=== PATIENT | female | born 1955 | race Caucasian/White ===

== ENCOUNTER 2018-03-07 20:27 | Inpatient (IN) | payer OTHER, MEDICARE ==
[~2018-03-07] VITALS: Ht 165.1 cm; Wt 63.5 kg
[~2018-03-07 20:27] MED LIST: GLIMEPIRIDE2 MG PO; METFORMIN HCL500 MG PO
[2018-03-07] MEDS ORDERED: KETOROLAC TROMETHAMINE 60 MG/2 ML VIAL IM ONE (20:45)
[2018-03-07] MEDS ORDERED: ORPHENADRINE CITRATE 30 MG/ML VIAL IM ONE (20:45)
[2018-03-07] MEDS ORDERED: TRAMADOL HCL 50 MG TAB PO ONE (20:45)
--- NOTE | 2018-03-07 20:57 | Discharge Summary ---
NO DICTATION. 0 seconds. Job#: [id number]
--- NOTE | 2018-03-07 21:38 | Diagnostic Imaging Report ---
LUMBAR 3 VIEW HISTORY: Lumbar pain COMPARISON: None FINDINGS: Bones: Compression deformity of L1 vertebral body of indeterminate age with decreased vertebral height of about 50% with evidence of a lower vertebral body retropulsion into the spinal canal of approximately 9 mm. Joints: Diffuse facet hypertrophy of the lower lumbar spine. Soft tissues: The soft tissues appear unremarkable. IMPRESSION: 1. Compression deformity of L1 as described above, indeterminate age with evidence of body retropulsion Signed by: Dr. Paulo Proctor M.D. on 03/07/2018 9:35 PM
--- NOTE | 2018-03-07 22:41 | Diagnostic Imaging Report ---
History: Low back pain Comparison studies: None Technique: Axial images were obtained from T11-T12 through the sacrum. Coronal and sagittal images reconstructed from the axial data. Intravenous contrast: None Findings: Number of non-rib bearing vertebral bodies: 5 Alignment: Normal lordosis. No scoliosis. Soft tissues: Incidental scattered calcified plaques in the abdominal aorta. Paraspinal muscles: Unremarkable. Vertebrae: The bones are moderately demineralized. An age indeterminate burst compression fracture at L1, which involves both endplates and the posterior wall, results in 60% height loss. A 6 mm retropulsed fragment from the inferior endplate results in moderate spinal canal stenosis. Cannot adequately evaluate the conus on this noncontrast lumbar spine CT. No infection or neoplasm Degenerative changes: The disks are relatively normal in height from L1 through S1. Moderate bilateral facet arthrosis at L4-5 (worse on the left) and at L5-S1 (worse on the right) does not result in spinal canal or significant foraminal stenosis. Sacroiliac joints: Bilaterally degenerated. IMPRESSION: 1. Bones are moderately demineralized. 2. An age indeterminate burst compression fracture at L1 (AO Spine classification A4) is associated with a retropulsed fragment that results in moderate underlying spinal canal stenosis. 3. No additional fractures. 4. Moderate degenerative changes of the facets at L4-5 and at L5-S1. 5. No additional lumbar abnormalities. Signed by: Dr. Polo Chapa M.D. on 03/07/2018 10:38 PM
[2018-03-07 23:22] LABS: BASOPHILS # (AUTO) 0.1 (0.0-0.1); BASOPHILS % 0.4 % (0.0-1.0); HEMATOCRIT 43.4 % (34.2-44.1); HEMOGLOBIN 14.8 g/dL (12.0-16.0); LYMPHOCYTES # (AUTO) 1.4 (1.0-3.2); LYMPHOCYTES % 6.8 % (18.0-39.1); MEAN CORPUSCULAR HEMOGLOBIN 31.4 pg (28-32); MEAN CORPUSCULAR HGB CONC 34.1 g/dL (31-35); MEAN CORPUSCULAR VOLUME 92.1 fL (81-99); MONOCYTES % 4.7 % (4.4-11.3); NEUTROPHILS # (AUTO) 17.9 (2.1-6.9); PLATELET COUNT 328 x10e3/uL (140-360); RED BLOOD COUNT 4.71 x10e6/uL (3.6-5.1); RED CELL DISTRIBUTION WIDTH 11.7 % (11.7-14.4)
[2018-03-07 23:29] LABS: INR 0.98; PARTIAL THROMBOPLASTIN TIME 22.8 seconds (23.8-35.5); PROTHROMBIN TIME 12.2 seconds (11.9-14.5)
[2018-03-07 23:38] LABS: ALBUMIN/GLOBULIN RATIO 1.1 (0.8-2.0); ANION GAP 17.5 mmol/L (8-16); CALCIUM 10.2 mg/dL (8.4-10.2); CREATININE, SERUM 0.94 mg/dL (0.57-1.11); POTASSIUM 4.5 mmol/L (3.5-5.1)
[2018-03-07] MEDS ORDERED: INSULIN REGULAR, HUMAN 100 UNIT/1 ML 3ML VIAL SQ ONE (23:45)
--- NOTE | 2018-03-07 23:52 | Diagnostic Imaging Report ---
EXAMINATION: CHEST SINGLE (PORTABLE) INDICATION: Presurgical assessment COMPARISON: None FINDINGS: TUBES and LINES: None. LUNGS: Lungs are well inflated. Lungs are clear. There is no evidence of pneumonia or pulmonary edema. PLEURA: No pleural effusion or pneumothorax. HEART AND MEDIASTINUM: The cardiomediastinal silhouette is unremarkable. BONES AND SOFT TISSUES: No acute osseous lesion. Soft tissues are unremarkable. UPPER ABDOMEN: No free air under the diaphragm. IMPRESSION: No acute thoracic abnormality. Signed by: Dr. Paulo Proctor M.D. on 03/07/2018 11:48 PM
[2018-03-08] VITALS (9 sets, daily range): BP systolic 148–177; BP diastolic 81–99
[2018-03-08 00:04] LABS: CLARITY,URINE CLEAR (CLEAR); COLOR,URINE YELLOW (YELLOW)
[2018-03-08 00:05] LABS: BILIRUBIN,URINE NEGATIVE (NEGATIVE); KETONES,URINE 3+ (NEGATIVE); LEUKOCYTE ESTERASE ,URINE NEGATIVE (NEGATIVE); NITRITE,URINE NEGATIVE (NEGATIVE); PROTEIN,URINE DIPSTICK NEGATIVE (NEGATIVE); URINE UROBILINOGEN 0.2 mg/dL (0.2 - 1)
[2018-03-08 00:11] LABS: EPITHELIAL CELLS,URINE RARE /LPF; RBC,URINE 0-5 /HPF (0-5); WBC,URINE (MAN) 0-5 /HPF (0-5)
[2018-03-08] MEDS ORDERED: DEXTROSE 50% SYRINGE 50 ML IV PRN ×2 (00:15→12:30)
[2018-03-08] MEDS ORDERED: ONDANSETRON HCL INJ 2 MG/ML VIAL IV PRN (00:15)
[2018-03-08] MEDS ORDERED: PIPER-TAZ 3.375 GM 50 ML IV STA (00:23)
[2018-03-08] MEDS ORDERED: ACETAMINOPHEN 325 MG TAB PO PRN (00:30)
--- OUTSIDE RECORDS SUMMARY | 2018-03-08 00:38 | XMS REPORT ---
Author Author [facility] Address Unknown Phone Unavailable Care Team Providers Care Raspberry Checker Name Role Phone DMITRY DANIELS Unavailable Unavailable Problems This patient has no known problems. Allergies, Adverse Reactions, Alerts This patient has no known allergies or adverse reactions. Medications This patient has no known medications. Results Test Description Test Time Test Comments Text Results Atomic Results Result Comments CHEST SINGLE (PORTABLE) [place] [address] Patient Name: NELI LOPEZ MR #: [id number] : 1955 Age/Sex: 63/F Req #: [id number] Adm Physician: Ordered by: DMITRY DANIELS MD Report #: [id number] Location: ER Room/Bed: ___ Procedure: [id number] DX/CHEST SINGLE (PORTABLE) Exam Date: 03/07/18 Exam Time: 2330 REPORT STATUS: Signed EXAMINATION: CHEST SINGLE (PORTABLE) INDICATION: Presurgical assessment COMPARISON: None FINDINGS: TUBES and LINES: None. LUNGS: Lungs are well inflated. Lungs are clear. There is no evidence of pneumonia or pulmonary edema. PLEURA: No pleural effusion or pneumothorax. HEART AND MEDIASTINUM: The cardiomediastinal silhouette is unremarkable. BONES AND SOFT TISSUES: No acute osseous lesion. Soft tissues are unremarkable. UPPER ABDOMEN: No free air under the diaphragm. IMPRESSION: No acute thoracic abnormality. Signed by: Dr. Paulo Proctor M.D. on 03/07/2018 11:48 PM Dictated By: PAULO VELEZ MD 47 COPY TO: DMITRY DANIELS MD CT LUMBAR SPINE WO [place] [address] Patient Name: NELI LOPEZ MR #: [id number] : 1955 Age/Sex: 63/F Req # : [id number] Adm Physician: Ordered by: DMITRY DANIELS MD Report # : [id number] Location: ER Room/Bed: Procedure: [id number] CT/CT LUMBAR SPINE WO Exam Date: 03/07/18 Exam Time: 2147 REPORT STATUS: Signed History: Low back pain Comparison studies: None Technique: Axial images were obtained from T11- T12 through the sacrum. Coronal and sagittal images reconstructed from the axial data. Intravenous contrast: None Findings: Number of non-rib bearing vertebral bodies: 5 Alignment: Normal lordosis. No scoliosis. Soft tissues: Incidental scattered calcified plaques in the abdominal aorta. Paraspinal muscles: Unremarkable. Vertebrae: The bones are moderately demineralized. An age indeterminate burst compression fracture at L1, which involves both endplates and the posterior wall, results in 60% height loss. A 6 mm retropulsed fragment from the inferior endplate results in moderate spinal canal stenosis. Cannot adequately evaluate the conus on this noncontrast lumbar spine CT. No infection or neoplasm Degenerative changes: The disks are relatively normal in height from L1 through S1. Moderate bilateral facet arthrosis at L4-5 (worse on the left) and at L5-S1 ( worse on the right) does not result in spinal canal or significant foraminal stenosis. Sacroiliac joints: Bilaterally degenerated. IMPRESSION: 1. Bones are moderately demineralized. 2. An age indeterminate burst compression fracture at L1 (AO Spine classification A4) is associated with a retropulsed fragment that results in moderate underlying spinal canal stenosis. 3. No additional fractures. 4. Moderate degenerative changes of the facets at L4-5 and at L5-S1. 5. No additional lumbar abnormalities. Signed by: Dr. Polo Chapa M.D. on 03/07/2018 10:38 PM Dictated By: POLO CHAPA MD, MD 37 Transcribed By: HERNANDEZ on 03/07/182237 COPY TO: DMITRY DANIELS MD LUMBAR 3 VIEW [place] [address] Patient Name: NELI LOPEZ MR #: [id number] : 1955 Age/Sex: 63/F Req #: [id number] Adm Physician: Ordered by: DMITRY DANIELS MD Report #: [id number] Location: ER Room/Bed: Procedure: [id number] DX/LUMBAR 3 VIEW Exam Date: 03/07/18 Exam Time : 2034 REPORT STATUS: Signed LUMBAR 3 VIEW HISTORY: Lumbar pain COMPARISON: None FINDINGS: Bones: Compression deformity of L1 vertebral body of indeterminate age with decreased vertebral height of about 50% with evidence of a lower vertebral body retropulsion into the spinal canal of approximately 9 mm. Joints: Diffuse facet hypertrophy of the lower lumbar spine. Soft tissues: The soft tissues appear unremarkable. IMPRESSION: 1. Compression deformity of L1 as described above, indeterminate age with evidence of body retropulsion Signed by: Dr. Paulo Proctor M.D. on 03/07/2018 9:35 PM Dictated By: PAULO VELEZ MD 34 COPY TO: DMITRY DANIELS MD
[2018-03-08] MEDS: VANCOMYCIN 1GM/NS 250 ML 250 ML IV SCH ×2 (01:12→12:26)
[2018-03-08] MEDS: SODIUM CHLORIDE 0.9% 1000ML 1,000 ML IV SCH ×3 (02:51→16:04)
[2018-03-08] MEDS: PIPER-TAZ 3.375 GM 50 ML IV SCH ×3 (06:00→22:31)
[2018-03-08] MEDS: INSULIN REGULAR, HUMAN 100 UNIT/1 ML 3ML VIAL SQ SCH ×4 (07:30→22:30)
[2018-03-08] MEDS ORDERED: LABETALOL HCL 5 MG/ML 20ML VIAL IV PRN (12:45)
--- NOTE | 2018-03-08 12:57 | Diagnostic Imaging Report ---
Examination: MRI of the Lumbar Spine without Contrast History: Back pain, known L1 compression fracture Comparison studies: CT Lumbar spine on 03/07/2018 Technique: Sagittal T1, T2 and IR, axial T2 with and without fat sat and axial spin density oblique Intravenous contrast: None Findings: Number of lumbar vertebral bodies: 5. Soft tissues: No T2 hyperintense inflammatory changes . T2 hyperintense lesions within the bilateral kidneys, most probably represent cysts. Paraspinal muscles: STIR hyperintensity within the right psoas muscles at L1. Lower thoracic cord: Normal in size and signal. The tip of the conus is at L1-L2. Spinal canal narrowing due to compression fracture involving the conus medullaris. Cauda equina:No masses. No arachnoiditis . Vertebrae: Pathologic compression fracture of L1, with 55% loss of height centrally and 0.7 cm of retropulsion, causing moderate canal stenosis and juxtaposition of the cauda equina nerve roots. Diffuse T1 hypointensity within the T12 vertebral body with a superior endplate compression deformity T1 hypointensity and increased STIR signal within the inferior L3 vertebral body. Smaller T1 hypointense lesions in the L2 and L4 vertebral bodies. Degenerative changes: L1-L2 No abnormalities. L2-L3: Tiny central disc protrusion. No foraminal or canal stenosis. L3-L4: Small bilateral facet joint effusions. L4-L5: Small bilateral facet joint effusions. L5-S1: No abnormalities. Partially visualized sacrum: None. IMPRESSION: 1. Pathologic L1 compression fracture with retropulsion causing moderate spinal canal stenosis and juxtaposition of the cauda equina nerve roots and conus. No intrinsic conus signal abnormality. 2. Probable L3 vertebral body acute fracture due to edema along the inferior vertebral body without height loss. 3. Findings suggestive of malignancy, with marrow signal changes involving multiple vertebral bodies, most prominently the T12 vertebral body. Postcontrast lumbar spine images may be obtained for further evaluation. 4. T12 superior endplate compression deformity, without significant height loss. 5. Nonspecific STIR hyperintensity within the right psoas muscle at the L1 level, which may represent edema from recent injury. The preliminary report was completed by the neuroradiology fellow Dr. Margarito Modi. Findings discussed with SUKHJINDER Alan at 1255pm 03/07/18. Additional finding at L3 discussed Registered Nurse Hanna on 03/08/2018 at 1532 hours. The images and preliminary report were reviewed and signed by Dr. Delmi Lawrence, neuroradiology faculty, on 03/08/2018 at 1533 hours. Signed by: Dr. Delmi Lawrence M.D. on 03/08/2018 3:35 PM
[2018-03-08] MEDS: MORPHINE SULFATE 2 MG/ML SYR IV PRN (18:00)
[2018-03-08] MEDS ORDERED: GADOBENATE DIMEGLUMINE 1 ML IV ONE (18:35)
[2018-03-08] MEDS: INSULIN DETEMIR 100 UNIT/ML PEN SQ SCH (21:00)
[2018-03-09] VITALS (7 sets, daily range): BP systolic 151–166; BP diastolic 79–87
[2018-03-09] MEDS: SODIUM CHLORIDE 0.9% 1000ML 1,000 ML IV SCH ×3 (00:04→17:45)
[2018-03-09] MEDS: MORPHINE SULFATE 2 MG/ML SYR IV PRN (01:45)
[2018-03-09] MEDS: PIPER-TAZ 3.375 GM 50 ML IV SCH ×3 (05:10→20:58)
[2018-03-09] MEDS: INSULIN REGULAR, HUMAN 100 UNIT/1 ML 3ML VIAL SQ SCH ×4 (07:30→21:00)
[2018-03-09 07:32] LABS: BASOPHILS # (AUTO) 0.1 (0.0-0.1); BASOPHILS % 0.5 % (0.0-1.0); EOSINOPHILS # (AUTO) 0.3 (0.0-0.4); EOSINOPHILS % 2.6 % (0.0-6.0); HEMATOCRIT 40.3 % (34.2-44.1); HEMOGLOBIN 13.4 g/dL (12.0-16.0); LYMPHOCYTES # (AUTO) 2.1 (1.0-3.2); LYMPHOCYTES % 22.2 % (18.0-39.1); MEAN CORPUSCULAR HEMOGLOBIN 31.2 pg (28-32); MEAN CORPUSCULAR HGB CONC 33.3 g/dL (31-35); MEAN CORPUSCULAR VOLUME 93.9 fL (81-99); MONOCYTES # (AUTO) 0.8 (0.2-0.8); MONOCYTES % 8.1 % (4.4-11.3); NEUTROPHILS # (AUTO) 6.2 (2.1-6.9); NEUTROPHILS % 66.2 % (38.7-80.0); PLATELET COUNT 274 x10e3/uL (140-360); RED BLOOD COUNT 4.29 x10e6/uL (3.6-5.1); RED CELL DISTRIBUTION WIDTH 11.9 % (11.7-14.4)
[2018-03-09 08:17] LABS: ALANINE AMINOTRANSFERASE 10 IU/L (0-55); ALBUMIN 3.2 g/dL (3.5-5.0); ALKALINE PHOSPHATASE 69 IU/L (40-150); ANION GAP 13.7 mmol/L (8-16); BLOOD UREA NITROGEN 10 mg/dL (7-26); BUN/CREATININE RATIO 18 (6-25); CALCIUM 8.7 mg/dL (8.4-10.2); CARBON DIOXIDE 19 mmol/L (22-29); CHLORIDE 107 mmol/L (98-107); CREATININE, SERUM 0.57 mg/dL (0.57-1.11); EST GLOMERULAR FILTRATION RATE > 60 ML/MIN (60-); GLUCOSE 188 mg/dL (74-118); POTASSIUM 3.7 mmol/L (3.5-5.1); SODIUM 136 mmol/L (136-145)
[2018-03-09] MEDS ORDERED: SODIUM CHLORIDE 0.9% 50ML 50 ML ONE (10:08)
[2018-03-09] MEDS ORDERED: IOPAMIDOL 370 MG/ML 200 ML INFUS..BTL INJ ONE (10:09)
--- NOTE | 2018-03-09 11:35 | Diagnostic Imaging Report ---
Images made available for interpretation on 03/09/2018 at 10:30 AM. EXAMINATION: MRI of the lumbar spine with contrast HISTORY: Worsening back pain since the day before, history of compression fracture of L1 COMPARISON: Noncontrast lumbar spine MRI of 03/08/[address] on 03/07/2018 TECHNIQUE: Sagittal and axial T2. Sagittal and axial T1 postcontrast fat sat. Intravenous contrast: 14 mL of MultiHance FINDINGS: It is assumed that there are 5 lumbar vertebrae. Vertebrae: -Unchanged acute compression fracture of the L1 vertebral body with decreased vertebral body height by approximately 60% and posterior retropulsion by approximately 6 mm, with associated moderate canal stenoses and minimal abutment of the ventral conus medullaris, no abnormal signal within the conus at this time. Diffuse bone marrow edema, with enhancing edema mostly along the lateral and posterior margins of the vertebral body. No posttraumatic ligamentous injury is seen at this time in the anterior or posterior compartment. -Acute mild compression fracture of the L3 vertebral body with depression of the inferior endplate and decreased vertebral body height by approximately 10%, no retropulsion or canal stenoses, mildly prominent enhancing bone marrow edema adjacent to the inferior endplate is noted. -Unchanged nonspecific diffuse low T1 and T2 signal intensity of the T12 vertebral body with minimal likely chronic depression of the superior endplate, no posterior retropulsion and no canal stenosis. There is no involvement of the pedicle/posterior elements. A follow-up bone scan is recommended once acute above mentioned fractures resolved-or treated, to further characterize. -Previously mentioned tiny T1 hypointense lesion adjacent to the inferior endplate of L4 is nonenhancing, questionable minimal enhancement seen in the tiny lesion at L2. Curvature/Alignment: Normal lordosis. Conus: Normal, terminating at L1-L2. Cauda equina: No abnormalities of the cauda equina nerve roots, particularly no abnormal meningeal enhancement. Nonspecific minimal linear enhancement of the dorsal spinal canal dura extending from partially visualized lower thoracic down to L5, which may be related to combined vascular structures, reactive to recent trauma or less likely due to inflammatory or neoplastic process. Lower thoracic: Unremarkable. Paraspinal soft tissues: Unchanged probable cyst in the kidneys. Persistent nonenhancing edema in the right. Multiple extending from L1 to L3. Degenerative changes: L4-L5: Moderate bilateral facet arthrosis with minimal degenerative synovitis worst on the left without significant foraminal stenoses. L5-S1: Bilateral facet arthroses with minimal degenerative synovitis worse on the right without foraminal stenosis. Sacroiliac joints: Mild degenerative changes bilaterally. IMPRESSION: 1. Unchanged acute most likely osteoporotic burst fracture (A4) of the L1 vertebral body with posterior retropulsion and moderate canal stenoses, however there is no significant compression of the conus medullaris at this time. Follow-up until resolution is recommended to exclude underlying pathology, if the patient is consider candidate for percutaneous vertebral/kyphoplasty or surgery a biopsy may be obtained at that time. 2. Also unchanged mild acute compression fracture of the inferior endplate of L3 without retropulsion or canal stenosis. 3. Stable nonspecific hypointense appearance of the T12 vertebral body as described. Signed by: Dr. Zita James M.D. on 03/09/2018 11:32 AM
--- NOTE | 2018-03-09 11:53 | Diagnostic Imaging Report ---
CT chest, abdomen and pelvis with intravenous contrast Indication: L1 burst fracture, evaluate for malignancy Technique: Thin collimation axial images obtained from the thoracic inlet to the level of the pubic symphysis following the uneventful administration of 100 cc of low osmolar, nonionic intravenous contrast. RADIATION DOSE: Total DLP: 877.7 mGy*cm Estimated effective dose: (DLP x 0.015 x size factor) mSv CTDIvol has been reviewed. It is below the limits set by the Radiation Protocol Committee (RPC). Comparison: MRI lumbar spine 03/08/2018, CT lumbar spine 03/07/2018. CHEST FINDINGS: Lymph nodes: No enlarged axillary or supraclavicular lymph nodes. Precarinal lymph node measures 8 x 13 mm. No enlarged subcarinal lymph nodes. A right hilar lymph node measures 8 mm. No enlarged cardiophrenic lymph nodes Thyroid: Normal size. Punctate calcification in the left lobe. Mediastinum: Small pericardial effusion. Main pulmonary artery measures 3.6 cm in diameter. No filling defect. The aorta measures 3.4 cm in diameter. Mild to moderate burden of coronary calcifications. There is a small hiatal hernia. Lungs: Right Lung: Minimal basilar atelectasis. No mass or infiltrate. Left Lung: Minimal basilar atelectasis. No mass or infiltrate. Pleura:Miniscule bilateral pleural effusions ABDOMEN FINDINGS: Liver: Normal attenuation. No evidence for mass. Gallbladder: Present and appears normal. No biliary ductal dilatation. Pancreas: Normal attenuation without mass or ductal dilatation. Spleen: Normal in size without mass. Adrenal Glands: No evidence for mass. Kidneys: Right: Normal enhancement. Scattered cysts measure up to 12 mm. No enhancing mass. No hydronephrosis. Left: Normal enhancement. No cortical mass. No hydronephrosis. Lymph Nodes: No enlarged abdominal or perirectal lymph nodes. Aorta: Normal in diameter with scattered calcifications. PELVIS FINDINGS: Bowel: Stomach: Normal in caliber with normal wall thickness. Small Bowel: Normal in caliber with normal wall thickness. Large Bowel: Normal in caliber with normal wall thickness. Appendix: Normal appendix. Bladder: Collapsed around a Paulino catheter with nondependent air. No ureteral dilatation. Lymph Nodes: No enlarged mesenteric, pelvic, or inguinal lymph nodes.. The uterus is present and is atrophic. No adnexal mass. No free fluid or fluid collection. Bones: Shoulders, ribs, and sternum are intact without focal osseous lesion. Pelvis, sacrum, and hips are unremarkable. Spine: No compression deformities of the thoracic spine. Mild endplate osteophytic lipping of the middle and lower lumbar spine. There is sclerosis of the T12 vertebral body as seen on CT and MRI with minimal superior endplate depression. Burst fracture deformity of L1 is redemonstrated with retropulsed bone fragments into the spinal canal. The spinal canal measures 14 mm in diameter at the inferior endplate (18 mm 1 level above). There is mild sclerosis of L3 of the inferior body corresponding to acute fracture. A sclerotic, nondestructive lesion in the inferior endplate of L4 measures 7 mm with high T2 and low T1 signal on MRI. N enhancement was identified on MRI. No focal osseous lesions elsewhere. IMPRESSION: 1. No pulmonary mass. Nonspecific but nonenlarged mediastinal lymph nodes. 2. Enlarged main pulmonary artery suggestive of pulmonary artery hypertension. 3. Small hiatal hernia. 4. No mass or lymphadenopathy in the abdomen or pelvis to suggest neoplasm. 5. Small right renal cysts. 6. Sclerosis of T12 with mild superior endplate compressions suggestive of impending fracture. 7. Stable L1 burst fracture with spinal canal stenosis. 8. Sclerotic subcentimeter lesion in L4 of uncertain significance. Signed by: Dr. Ian Clinton MD on 03/09/2018 11:49 AM
[2018-03-09] MEDS: VANCOMYCIN 1GM/NS 250 ML 250 ML IV SCH ×3 (12:06→23:27)
[2018-03-09] MEDS: INSULIN DETEMIR 100 UNIT/ML PEN SQ SCH (21:00)
--- NOTE | 2018-03-09 21:34 | Consultation ---
DATE OF CONSULTATION: March 09, 2018 REASON FOR CONSULTATION: L1 fracture. HISTORY OF PRESENT ILLNESS: Patient is a 63-year-old woman with no previous history of neoplasm and no known history of osteoporosis who was lifting a heavy safe her with her when she felt a loud pop in her back and developed acute mid lumbar pain. The pain does not radiate down the legs. She was able to ambulate after that. She denies any numbness or weakness in the legs or any bowel or bladder incontinence. Because of the pain, she has difficulty standing and walking but is able to do it if she wants to. An MRI of the lumbar spine without contrast was performed, which revealed compression fracture of L1 with mild retropulsion and mild spinal stenosis without cord or conus compression. She was also found to have a minor compression fracture of the inferior endplate of L3. She was also found to have low T1 and T2 signal in the vertebral body of T12, which likely suggests red marrow. The patient subsequently had an MRI of the lumbar spine, which reveals mild enhancement of the vertebral body of L1 and the inferior aspect of vertebral body of L3 consistent with post compression fracture enhancement. The findings are not particularly suspicious for neoplasm, although a neoplastic pathological fracture cannot be completely excluded. EXAMINATION: The patient is alert and comfortable. She is able to lift her legs against gravity. She has good distal strength in gastrocnemius and anterior tibialis. She has normal sensory function. IMPRESSION: Compression fracture of L1 and inferior endplate of L3, most likely osteoporotic, but the possibility of a neoplastic pathological fracture cannot be completely excluded. RECOMMENDATION: The patient does not require surgery in absence of conus compression. I recommend a CT-guided biopsy of the L1 vertebral body by interventional radiology, followed immediately by kyphoplasty. Job#: [id number] CQ
[2018-03-10] VITALS: BP 161/89
[2018-03-10 03:50] VITALS: BP 162/92
[2018-03-10] MEDS: MORPHINE SULFATE 2 MG/ML SYR IV PRN (03:56)
[2018-03-10] MEDS: PIPER-TAZ 3.375 GM 50 ML IV SCH ×3 (04:53→22:00)
[2018-03-10] MEDS: SODIUM CHLORIDE 0.9% 1000ML 1,000 ML IV SCH ×4 (04:53→23:44)
[2018-03-10 07:25] VITALS: BP 165/87
[2018-03-10] MEDS: INSULIN REGULAR, HUMAN 100 UNIT/1 ML 3ML VIAL SQ SCH ×4 (07:30→21:00)
[2018-03-10 09:00] VITALS: BP 165/87
[2018-03-10 12:00] VITALS: BP 164/87
[2018-03-10] MEDS: VANCOMYCIN 1GM/NS 250 ML 250 ML IV SCH ×2 (12:00→23:44)
--- NOTE | 2018-03-10 19:48 | Diagnostic Imaging Report ---
Bone Scan, three-phase Reason for exam: 63 F with compression fracture of L1. Radiopharmaceutical: Tc-99m MDP 25 mCi Comparison: MRI spine 03/08/2018 Following intravenous administration of the radiopharmaceutical, dynamic flow and immediate blood pool images of the lower back followed by 4.5-hour delayed total body and selected spot images were obtained. Flow and blood pool images show symmetric distribution of tracer activity to the the lower back. The delayed images show focal increased tracer bilaterally in L1. Mildly increased tracer is seen in L3 and also on the left side of L4/L5. Diffuse mildly increased tracer is seen in the mid to lower thoracic spine without discrete focal abnormality. Otherwise, distribution of tracer activity is unremarkable throughout the skeletal system. No abnormal accumulation of tracer is seen in the soft tissues or urinary tract. Impression: 1. Acute osteoblastic process in L1 consistent with acute/recent compression fracture of L1. 2. Acute osteoblastic process in L3 also consistent with recent compression fracture. 3. Degenerative changes in the mid to lower thoracolumbar spine. Likely facet arthropathy in L4/L5. 4.No scan pattern of metastatic or metabolic bone disease. No evidence of osteomyelitis. Signed by: Dr. Meseret Lord M.D. on 03/10/2018 7:45 PM
[2018-03-10 20:00] VITALS: BP 146/70
[2018-03-10] MEDS: INSULIN DETEMIR 100 UNIT/ML PEN SQ SCH (21:00)
[2018-03-11] VITALS (7 sets, daily range): BP systolic 143–199; BP diastolic 79–94
[2018-03-11] MEDS: PIPER-TAZ 3.375 GM 50 ML IV SCH ×3 (06:02→21:06)
[2018-03-11] MEDS: INSULIN REGULAR, HUMAN 100 UNIT/1 ML 3ML VIAL SQ SCH ×4 (07:30→21:04)
[2018-03-11] MEDS: SODIUM CHLORIDE 0.9% 1000ML 1,000 ML IV SCH ×2 (08:04→16:04)
[2018-03-11] MEDS ORDERED: CEFAZOLIN SOD 1 GM/NS 50ML 50 ML IV STA (09:15)
[2018-03-11] MEDS ORDERED: CEFAZOLIN SOD 1 GM VIAL IV NR (09:45)
[2018-03-11] MEDS: VANCOMYCIN 1GM/NS 250 ML 250 ML IV SCH (12:00)
[2018-03-11] MEDS: MORPHINE SULFATE 2 MG/ML SYR IV PRN (14:20)
[2018-03-11] MEDS ORDERED: ONDANSETRON HCL 4 MG ORAL DISINTEGRATING TAB PO PRN (15:45)
[2018-03-11] MEDS: INSULIN DETEMIR 100 UNIT/ML PEN SQ SCH (21:05)
[2018-03-12] VITALS (8 sets, daily range): BP systolic 129–160; BP diastolic 64–86
[2018-03-12] MEDS: VANCOMYCIN 1GM/NS 250 ML 250 ML IV SCH ×3 (00:03→23:07)
[2018-03-12] MEDS: MORPHINE SULFATE 2 MG/ML SYR IV PRN ×3 (00:45→18:53)
[2018-03-12] MEDS: SODIUM CHLORIDE 0.9% 1000ML 1,000 ML IV SCH ×4 (00:54→23:08)
[2018-03-12] MEDS: PIPER-TAZ 3.375 GM 50 ML IV SCH ×3 (04:58→21:12)
[2018-03-12] MEDS: INSULIN REGULAR, HUMAN 100 UNIT/1 ML 3ML VIAL SQ SCH ×4 (07:30→20:20)
--- NOTE | 2018-03-12 13:07 | Consultation ---
DATE OF CONSULTATION: March 10, 2018 CONSULTATION TO: Dr. Fred Jackson Lulu Tijerina is a 63-year-old female referred to me for evaluation of a fracture of L1 and possible L3. The patient had presented with pain. Subsequently was seen. The patient had an MRI of the lumbosacral spine which showed osteoporotic compression fracture. SOCIAL HISTORY: Noncontributory. FAMILY HISTORY: Noncontributory. ALLERGIES: REPORTED NONE. MEDICATIONS AT THIS TIME 1. Zosyn. 2. Vancomycin. 3. Tylenol. 4. Morphine. 5. Ondansetron. 6. Insulin. 7. Labetalol. REVIEW OF SYSTEMS HEENT: Normal. CARDIAC: Essentially normal. RESPIRATORY: Normal. GI: Normal. : Normal. MUSCULOSKELETAL: Compression fracture of L1 and L3, possibly osteoporotic. PHYSICAL EXAMINATION GENERAL: A moderately built female. No palpable adenopathy. HEART: Within normal limits. LUNGS: Clear. BREASTS: Normal. ABDOMEN: Obese. No hepatosplenomegaly. RECTAL: Exam deferred. CENTRAL NERVOUS SYSTEM: Essentially normal. EXTREMITIES: Essentially normal. LABS: Transiently on 03/07/2018 showed a white count of 20,590. However, the CBC today shows a hemoglobin of 13.4, hematocrit 40.3, white count 9400, platelets 274,000. INR 0.98. Sodium 136, potassium 3.7, chloride 77, CO2 19, BUN 10, creatinine 0.5. Glucose has been fluctuating. Bilirubin 0.9, SGOT 10, SGPT 10, alkaline phosphatase 69. MRI of the spine shows the patient to have L1 compression fracture as well as possible L3 compression fracture. Degenerative arthritis at L4-L5 and L5-S1. IMPRESSION 1. Transient leukemoid reaction. 2. Diabetes mellitus, insulin dependent. 3. Hyperglobulinemia but with quantitation of immunoglobulins being normal as reported IgG 847, IgM 88, IgA 181. 4. Pulmonary artery hypertension by a CAT scan. 5. Hiatus hernia. 6. L1 compression fracture, possibly osteoporotic. 7. Degenerative arthritis, L4-L5. PLAN, COMMENTS AND SUGGESTIONS: Suggest biopsy of L1 and kyphoplasty preferably of both L1 and L3. Bone scan was done; however, the bone scan is again suggestive of compression fracture of L1 and L3. I have awaited the biopsy. I have come to know today on 03/12/2018 that the patient will be transferred to [facility] for the biopsy and kyphoplasty. Job#: [id number] cc:MD BERNIE PADILLA MD
[2018-03-12] MEDS: INSULIN DETEMIR 100 UNIT/ML PEN SQ SCH (20:20)
[2018-03-13] VITALS (7 sets, daily range): BP systolic 146–165; BP diastolic 80–97
[2018-03-13] MEDS: PIPER-TAZ 3.375 GM 50 ML IV SCH ×2 (05:10→14:28)
[2018-03-13] MEDS: MORPHINE SULFATE 2 MG/ML SYR IV PRN ×3 (06:12→19:55)
[2018-03-13] MEDS: SODIUM CHLORIDE 0.9% 1000ML 1,000 ML IV SCH ×2 (08:31→16:26)
[2018-03-13] MEDS: INSULIN REGULAR, HUMAN 100 UNIT/1 ML 3ML VIAL SQ SCH ×4 (08:33→20:53)
[2018-03-13] MEDS ORDERED: LACTULOSE SYRUP 20 GM/30 ML UDC PO PRN (11:00)
[2018-03-13] MEDS ORDERED: MAGNESIUM HYDROXIDE 30 ML UDC PO ONE (11:15)
[2018-03-13] MEDS: VANCOMYCIN 1GM/NS 250 ML 250 ML IV SCH (12:30)
[2018-03-13] MEDS: INSULIN DETEMIR 100 UNIT/ML PEN SQ SCH (20:54)
== END 2018-03-13 21:05 | disposition short-term general hospital (02) | DRG 544 ==
LOC: ER 20:27 → MED/SURG3 03-08 00:33
DX: M80.08XA Age-related osteoporosis with current pathological fracture, vertebra(e), initial encounter for fracture (principal); M48.061 Spinal stenosis, lumbar region without neurogenic claudication; E11.65 Type 2 diabetes mellitus with hyperglycemia; R77.1 Abnormality of globulin; K44.9 Diaphragmatic hernia without obstruction or gangrene; I27.21 Secondary pulmonary arterial hypertension; X50.0XXA Overexertion from strenuous movement or load, initial encounter; Y93.89 Activity, other specified; D72.823 Leukemoid reaction
CPT/HCPCS: 36415; 51700; 71045; 71260; 72100; 72131; 72148; 72149; 74177; 78315; 80053; 80202; 81001; 82232; 82784; 82948; 83036; 84165; 85025; 85610; 85730; 87040; 87071; 87086; 87205; 93005; 96361; 96367; 96372; 99284; A9503; J1885; J2270; J2360; J2543; J3370; J7030; Q9967

== ENCOUNTER → 2018-04-16 | Outpatient (CLI) | payer OTHER, MEDICARE ==
--- NOTE | 2018-04-16 11:40 | Diagnostic Imaging Report ---
PROCEDURE: L-SPINE 3V COMPARISON: Abdominal CT 03/11/2018 INDICATIONS: COMPRESSION FX L1 FINDINGS: Stable L1 burst fracture with posterior bony retropulsion into the spinal canal. Stable mild superior endplate compression of T12. The lumbar spine is in otherwise in anatomic alignment without evidence of fracture, spondylolisthesis, or spondylolysis. Vertebral body heights and disc spaces are maintained. The paraspinal soft tissues are normal. Atherosclerotic calcification noted. CONCLUSION: Stable L1 burst fracture causing spinal canal stenosis. Stable T12 mild superior endplate compression. Dictated by: Mikhail Thomas M.D. on 04/16/2018 at 11:43 Electronically approved by: Mikhail Thomas M.D. on 04/16/2018 at 11:43
== END ==
LOC: RAD 10:19
PROVIDERS: ATTEND Neurological Surgery
DX: S32.010S Wedge compression fracture of first lumbar vertebra, sequela (principal)
CPT/HCPCS: 72100

== ENCOUNTER → 2018-08-25 | Outpatient (CLI) | payer OTHER, MEDICARE ==
--- NOTE | 2018-08-25 14:15 | Diagnostic Imaging Report ---
Exam: Lumbar spine AP lateral History: Back pain Comparison: Multiple prior studies Findings: No new fracture. Compression fracture of L1 with greater than 50% height loss and posterior extension into the canal. Bone demineralization. Disc spaces otherwise intact. 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 Impression: No acute osseous abnormality Prior compression fracture of L1 Facet arthrosis L4-5 L5-S1 Signed by: Dr. Rocky Long M.D. on 08/25/2018 2:12 PM
== END ==
LOC: RAD 13:08
PROVIDERS: ATTEND Neurological Surgery
DX: S32.010S Wedge compression fracture of first lumbar vertebra, sequela (principal)
CPT/HCPCS: 72100

== ENCOUNTER → 2019-11-24 | Outpatient (CLI) | payer OTHER, MEDICARE ==
--- NOTE | 2019-11-25 11:04 | Diagnostic Imaging Report ---
Exam: Bone mineral density study. History: Postmenopausal female. Comparison: None Discussion: Evaluation of the left hip and lumbar spine was performed utilizing DEXA Hologic bone densitometer. The study is technically adequate. The patient's fracture risk is compared to an age-matched control. Left femoral neck bone mineral density: 0.53 g/cm2, T-score is -2.9, Z-score is -1.3. No previous comparison. Lumbar spine total bone mineral density: 0.916 gm/cm2, T-score is -1.2, Z-score is 0.7. No previous comparison. Impression: Bone mineralization by WHO Classification using T score is osteoporosis, fracture risk is high. <T score: NL = -1 or higher Osteopenia = -1 to -2.5 Osteoporosis = -2.5 or lower Z score: < - 1.5 concerning for path> Recommendations: Medical evaluation for secondary causes of low bone mineral density may be appropriate. Correlate clinically for the necessity and timing of the next bone mineral density study. National Osteopor[employer] Foundation recommendations: Initiate therapy to reduce fracture risk in postmenopausal women with -BMD t-scores below -2 by central DXA with no risk factors -BMD t-scores below -1.5 by central DXA with one or more risk factors (first deg relative with hip fracture, prior personal fracture, low body weight, smoking) -A prior vertebral or hip fracture AACE (Clinical Endocrinology) recommends treating the following: Postmenopausal women who have osteoporosis as diagnosed by fragility fractures or t scores -2.5 or below Postmenopausal women who have risk factors (including fh of hip fracture, low body weight, smoking, risk of falling, high bone turnover, advancing age) and borderline low BMD T scores of -1.5 or below Adequate intake of calcium (at least 1200mg/day) and vitamin D (400-800 IU/day). Regular weight bearing and muscle - strengthening exercises Avoid smoking and excessive alcohol Signed by: Vipul Steve on 11/25/2019 11:01 AM
== END ==
LOC: MAMMO 09:52
PROVIDERS: ATTEND Family Medicine
DX: Z12.31 Encounter for screening mammogram for malignant neoplasm of breast (principal); M81.0 Age-related osteoporosis without current pathological fracture
CPT/HCPCS: 77067; 77080